=== PATIENT | male | born 1990 | race Caucasian/White ===

== ENCOUNTER 2018-12-27 10:34 | Emergency (ER) | payer OTHER, MEDICAID ==
[~2018-12-27] VITALS: Ht 180.3 cm; Wt 95.7 kg
[2018-12-27 10:40] VITALS: Ht 180.3 cm; Wt 95.7 kg
[2018-12-27 13:46] VITALS: BP 127/88
== END 2018-12-27 13:56 | disposition home or self-care (01) ==
LOC: ED 10:34
DX: S09.8XXA Other specified injuries of head, initial encounter (principal); M54.2 Cervicalgia; M54.6 Pain in thoracic spine; Z98.890 Other specified postprocedural states; V43.52XA Car driver injured in collision with other type car in traffic accident, initial encounter; Y93.I9 Activity, other involving external motion; Y92.488 Other paved roadways as the place of occurrence of the external cause; Y99.8 Other external cause status
CPT/HCPCS: Q0162